=== PATIENT | female | born 1995 | race Caucasian/White ===

== ENCOUNTER 2018-09-26 13:10 | Observation (INO) | payer MEDICAID ==
[~2018-09-26] VITALS: Ht 186 cm; Wt 146.1 kg
== END 2018-09-26 15:10 | disposition home or self-care (01) ==
LOC: 4S 13:10
PROVIDERS: ADMIT Obstetrics & Gynecology; ATTEND Obstetrics & Gynecology
DX: O62.9 Abnormality of forces of labor, unspecified (principal); Z3A.32 32 weeks gestation of pregnancy
CPT/HCPCS: 59025; G0378

== ENCOUNTER 2018-10-23 20:49 | Observation (INO) | payer MEDICAID ==
[~2018-10-23] VITALS: Ht 187 cm; Wt 88.9 kg
[2018-10-23] MEDS ORDERED: PNV11TAB PO (21:14)
[2018-10-23 21:15] VITALS: BP 109/68
== END 2018-10-23 23:00 | disposition home or self-care (01) ==
LOC: 4S 20:49
PROVIDERS: ADMIT Obstetrics & Gynecology; ATTEND Obstetrics & Gynecology
DX: O62.9 Abnormality of forces of labor, unspecified (principal); Z3A.36 36 weeks gestation of pregnancy